=== PATIENT | male | born 1960 | race Caucasian/White ===

== ENCOUNTER 2016-09-02 07:30 | Outpatient (RCR) | payer BC | END 2016-09-05 | disposition home or self-care (01) | LOC: PT 07:30 | PROVIDERS: ATTEND Family Medicine | DX: M54.5 Low back pain (principal); M25.511 Pain in right shoulder; M62.830 Muscle spasm of back | CPT/HCPCS: 97035; 97110; 97140; G0283; 97014 ==

== ENCOUNTER 2016-11-30 15:15 | Outpatient (RCR) | payer BC ==
[~2016-11-30 15:15] MED LIST: ASP81CT PO; ATOR80TA73 PO; CPR500T PO; CYAN1TAB26 PO; FEBU40TA PO; MTHL5T PO
== END 2016-12-05 | disposition home or self-care (01) ==
LOC: PT 15:15
PROVIDERS: ATTEND Family Medicine
DX: M54.5 Low back pain (principal); M25.511 Pain in right shoulder; M62.830 Muscle spasm of back

== ENCOUNTER 2016-12-27 07:30 | Outpatient (RCR) | payer BC | END 2017-01-02 11:10 | disposition home or self-care (01) | LOC: PT 07:30 | PROVIDERS: ATTEND Family Medicine | DX: M54.5 Low back pain (principal); M25.511 Pain in right shoulder; M62.830 Muscle spasm of back ==